=== PATIENT | male | born 1960 | race Native Hawaiian/Other Pacific Islander ===

== ENCOUNTER 2017-05-12 08:54 | Outpatient (CLI) | payer OTHER ==
[~2017-05-12 08:54] MED LIST: ASPIR-8181 MG PO; CARB200T42 PO; CLOP75TA2 PO; DIAZ5TAB20 PO; LIPITOR40 MG PO; VALS160T2 PO
[2017-05-12 09:50] LABS: PLATELET COUNT 357 K/uL (142-355)
[2017-05-12 10:12] LABS: POTASSIUM 3.6 mmol/L (3.6-5.2); SODIUM 134 mmol/L (136-145)
== END 2017-05-12 10:15 | disposition home or self-care (01) ==
LOC: LABW 08:54
PROVIDERS: Internal Medicine
DX: J44.9 Chronic obstructive pulmonary disease, unspecified (principal); I25.10 Atherosclerotic heart disease of native coronary artery without angina pectoris; Z12.5 Encounter for screening for malignant neoplasm of prostate; G40.802 Other epilepsy, not intractable, without status epilepticus
CPT/HCPCS: 36415; 80053; 80061; 80156; 80307; 81000; 84153; 84443; 85027; G0479

== ENCOUNTER 2017-05-29 09:50 | Outpatient (CLI) | payer OTHER | END 2017-05-29 11:00 | disposition home or self-care (01) | LOC: RESP 09:50 | DX: G40.309 Generalized idiopathic epilepsy and epileptic syndromes, not intractable, without status epilepticus (principal) ==

== ENCOUNTER 2017-11-13 09:25 | Outpatient (CLI) | payer OTHER | END 2017-11-13 22:00 | disposition home or self-care (01) | LOC: RAD 09:25 | DX: J44.1 Chronic obstructive pulmonary disease with (acute) exacerbation (principal) ==

== ENCOUNTER 2017-11-19 11:30 | Outpatient (CLI) | payer OTHER | END 2017-11-19 19:57 | disposition home or self-care (01) | LOC: RESP 11:30 | DX: J44.9 Chronic obstructive pulmonary disease, unspecified (principal) | CPT/HCPCS: 36600; 82805; 94640; 94664 ==

== ENCOUNTER 2017-11-20 08:07 | Outpatient (CLI) | payer OTHER | END 2017-11-20 19:18 | disposition home or self-care (01) | LOC: CT 08:07 | DX: J40 Bronchitis, not specified as acute or chronic (principal) | CPT/HCPCS: 36415; 82565; 84520; Q9963 ==

== ENCOUNTER 2017-12-08 22:10 | Emergency (ER) | payer OTHER ==
[~2017-12-08] VITALS: Ht 182.9 cm; Wt 70.3 kg
[2017-12-08 22:38] VITALS: TEMP 98.1
[2017-12-08 23:07] LABS: PLATELET COUNT 306 K/uL (142-355)
[2017-12-08 23:35] LABS: POTASSIUM 3.7 mmol/L (3.6-5.2); SODIUM 132 mmol/L (136-145)
[2017-12-09 00:18] LABS: PARTIAL THROMBOPLASTIN TIME 27.2 SECONDS (24.5-33.6)
[2017-12-09 00:47] VITALS: BP 151/82
== END 2017-12-09 00:50 | disposition home or self-care (01) ==
LOC: ED 22:10
DX: R00.2 Palpitations (principal); I25.10 Atherosclerotic heart disease of native coronary artery without angina pectoris; R51 Headache; Z79.899 Other long term (current) drug therapy; Z51.81 Encounter for therapeutic drug level monitoring
CPT/HCPCS: 36415; 80053; 82550; 82553; 84484; 85027; 85610; 85730; 93005; 99284

== ENCOUNTER 2018-05-14 14:58 | Outpatient (CLI) | payer OTHER ==
[2018-05-14 15:22] LABS: PLATELET COUNT 334 K/uL (142-355)
== END 2018-05-14 21:26 | disposition home or self-care (01) ==
LOC: LABW 14:58
PROVIDERS: Physician Assistant
DX: I10 Essential (primary) hypertension (principal); E78.00 Pure hypercholesterolemia, unspecified; D47.3 Essential (hemorrhagic) thrombocythemia; E55.9 Vitamin D deficiency, unspecified; Z79.899 Other long term (current) drug therapy; Z51.81 Encounter for therapeutic drug level monitoring; Z12.5 Encounter for screening for malignant neoplasm of prostate
CPT/HCPCS: 36415; 80061; 82306; 83036; 84153; 84439; 84443; 85027

== ENCOUNTER 2018-12-15 13:28 | Outpatient (CLI) | payer OTHER ==
[2018-12-15 13:44] LABS: PLATELET COUNT 363 K/uL (142-355)
[2018-12-15 14:14] LABS: POTASSIUM 4.4 mmol/L (3.6-5.2)
== END 2018-12-15 19:20 | disposition home or self-care (01) ==
LOC: LABW 13:28
PROVIDERS: Internal Medicine
DX: J44.9 Chronic obstructive pulmonary disease, unspecified (principal); Z12.5 Encounter for screening for malignant neoplasm of prostate; E78.00 Pure hypercholesterolemia, unspecified; F43.10 Post-traumatic stress disorder, unspecified
CPT/HCPCS: 36415; 80053; 80061; 81000; 84153; 84439; 84443; 85027

== ENCOUNTER 2019-02-03 14:58 | Outpatient (CLI) | payer OTHER | END 2019-02-03 20:08 | disposition home or self-care (01) | LOC: RAD 14:58 | DX: M25.532 Pain in left wrist (principal); M79.642 Pain in left hand; M79.602 Pain in left arm ==

== ENCOUNTER 2019-04-07 11:45 | Emergency (ER) | payer OTHER ==
[~2019-04-07] VITALS: Ht 182.9 cm; Wt 69.4 kg
[2019-04-07 12:11] LABS: PLATELET COUNT 324 K/uL (142-355)
[2019-04-07 12:22] LABS: SODIUM 134 mmol/L (136-145)
[2019-04-07 15:55] VITALS: BP 140/89; TEMP 98
== END 2019-04-07 15:55 | disposition home or self-care (01) ==
LOC: ED 11:45
PROVIDERS: Emergency Medicine
DX: R07.89 Other chest pain (principal); M94.0 Chondrocostal junction syndrome [Tietze]
CPT/HCPCS: 80053; 82550; 82553; 84484; 85027; 93005; 99284; J2270

== ENCOUNTER 2019-06-02 09:32 | Outpatient (CLI) | payer OTHER | END 2019-06-02 22:15 | disposition home or self-care (01) | LOC: CT 09:32 | DX: R91.8 Other nonspecific abnormal finding of lung field (principal); I65.29 Occlusion and stenosis of unspecified carotid artery; J44.9 Chronic obstructive pulmonary disease, unspecified ==

== ENCOUNTER 2020-09-05 19:37 | Emergency (ER) | payer OTHER ==
[~2020-09-05] VITALS: Ht 182.9 cm; Wt 70.3 kg
[2020-09-05 19:45] VITALS: TEMP 98.6
[2020-09-05 20:36] LABS: PLATELET COUNT 356 K/uL (142-355)
[2020-09-05 20:50] LABS: POTASSIUM 3.9 mmol/L (3.6-5.2); SODIUM 134 mmol/L (136-145)
[2020-09-05 23:14] VITALS: BP 151/93
== END 2020-09-05 23:15 | disposition still patient (30) ==
LOC: ED 19:37
PROVIDERS: Family Medicine
DX: R07.89 Other chest pain (principal); M54.12 Radiculopathy, cervical region
CPT/HCPCS: 36415; 80053; 81000; 82550; 82553; 84484; 85027; 93005; 96374; 96375; 99284; J1100; J3490

== ENCOUNTER 2021-01-04 08:56 | Outpatient (CLI) | payer OTHER ==
[2021-01-04 09:51] LABS: PLATELET COUNT 378 K/uL (142-355)
[2021-01-04 10:13] LABS: POTASSIUM 5.1 mmol/L (3.6-5.2)
== END 2021-01-04 21:26 | disposition home or self-care (01) ==
LOC: CT 08:56
PROVIDERS: ATTEND Internal Medicine
DX: Z00.00 Encounter for general adult medical examination without abnormal findings (principal); Z12.2 Encounter for screening for malignant neoplasm of respiratory organs; Z13.6 Encounter for screening for cardiovascular disorders; Z12.5 Encounter for screening for malignant neoplasm of prostate; F17.210 Nicotine dependence, cigarettes, uncomplicated; Z79.899 Other long term (current) drug therapy
CPT/HCPCS: 36415; 80053; 80061; 80156; 81000; 83036; 84153; 84439; 84443; 85027; G0297-TC

== ENCOUNTER 2022-05-22 10:29 | Emergency (ER) | payer OTHER ==
[~2022-05-22] VITALS: Ht 182.9 cm; Wt 70.3 kg
[2022-05-22 10:35] VITALS: TEMP 97
[2022-05-22 11:36] LABS: PLATELET COUNT 389 K/uL (142-355)
[2022-05-22 11:51] LABS: POTASSIUM 4.8 mmol/L (3.6-5.2)
[2022-05-22] MEDS ORDERED: CEFDINIR300 MG PO (12:21)
[2022-05-22] MEDS ORDERED: PREDNISONE20 MG PO (12:21)
[2022-05-22] MEDS ORDERED: IPRATROPIUM/ INH (12:21)
[2022-05-22 12:31] VITALS: BP 128/71
== END 2022-05-22 12:31 | disposition home or self-care (01) ==
LOC: ED 10:29
PROVIDERS: Emergency Medicine Emergency Medical Services
DX: J44.1 Chronic obstructive pulmonary disease with (acute) exacerbation (principal); Z20.822 Contact with and (suspected) exposure to COVID-19
CPT/HCPCS: 36415; 36600; 80053; 82805; 83735; 83880; 84484; 85027; 85379; 87040; 87502; 87635; 93005; 94664; 96361; 96365; 96375; 99284; J0696; J2930; U0003

== ENCOUNTER 2022-06-12 08:52 | Outpatient (CLI) | payer OTHER ==
[~2022-06-12 08:52] MED LIST changes: +CEFDINIR300 MG PO; +IPRATROPIUM/ INH; +PREDNISONE20 MG PO
== END 2022-06-12 19:21 | disposition home or self-care (01) ==
LOC: CT 08:52
PROVIDERS: ATTEND Nurse Practitioner Family
DX: R59.0 Localized enlarged lymph nodes (principal)
CPT/HCPCS: 36415; 82565; 84520

== ENCOUNTER 2022-06-19 09:26 | Outpatient (CLI) | payer OTHER | END 2022-06-19 19:59 | disposition home or self-care (01) | LOC: RESP 09:26 | PROVIDERS: ATTEND Nurse Practitioner Family | DX: J41.0 Simple chronic bronchitis (principal); R59.9 Enlarged lymph nodes, unspecified | CPT/HCPCS: Q9963 ==

== ENCOUNTER 2022-12-05 20:02 | Emergency (ER) | payer OTHER ==
[~2022-12-05] VITALS: Ht 182.9 cm; Wt 68.0 kg
[2022-12-05 21:55] VITALS: BP 135/78; TEMP 97.8
== END 2022-12-05 21:55 | disposition home or self-care (01) ==
LOC: ED 20:02
PROC: 2W21X4Z Dressing of Face using Bandage (ICD-10-PCS; principal; 2022-12-05)
DX: T20.20XA Burn of second degree of head, face, and neck, unspecified site, initial encounter (principal); T20.24XA Burn of second degree of nose (septum), initial encounter; T31.0 Burns involving less than 10% of body surface; Z99.81 Dependence on supplemental oxygen; X08.8XXA Exposure to other specified smoke, fire and flames, initial encounter; Y92.098 Other place in other non-institutional residence as the place of occurrence of the external cause
CPT/HCPCS: 90471; 90715; 96372; 99283; J1885

== ENCOUNTER 2023-06-16 15:33 | Outpatient (CLI) | payer OTHER ==
[2023-06-16 16:20] LABS: PLATELET COUNT 304 K/uL (142-355)
[2023-06-16 16:44] LABS: POTASSIUM 4.8 mmol/L (3.6-5.2)
== END 2023-06-16 19:16 | disposition home or self-care (01) ==
LOC: LAB 15:33
PROVIDERS: ATTEND Internal Medicine
DX: I25.10 Atherosclerotic heart disease of native coronary artery without angina pectoris (principal); J44.1 Chronic obstructive pulmonary disease with (acute) exacerbation; I10 Essential (primary) hypertension; G40.802 Other epilepsy, not intractable, without status epilepticus
CPT/HCPCS: 80053; 80061; 83880; 84439; 84443; 85027; 85379

== ENCOUNTER 2023-06-20 08:04 | Outpatient (CLI) | payer OTHER | END 2023-06-20 20:24 | disposition home or self-care (01) | LOC: LABW 08:04 | PROVIDERS: ATTEND Internal Medicine | DX: G40.802 Other epilepsy, not intractable, without status epilepticus (principal) | CPT/HCPCS: 36415; 80156 ==